=== PATIENT | male | born 1955 | race Caucasian/White ===

== ENCOUNTER → 2024-11-15 14:26 | Outpatient (CLI) | payer OTHER, SELFPAY ==
--- NOTE | 2024-11-15 14:32 | DI.NM.S_ITS ---
PROCEDURE: NM EXERCISE TREADMILL NON NUC COMPARISON: None. INDICATIONS: chronic systolic heart failure FINDINGS: The patient exercised for 7 minutes and 54 seconds reaching 87% of maximum predicted heart rate. Appropriate BP response to exercise. Good exercise tolerance (10.1 METs, SOHAIL -12%). Frequent PVC during exercise/recovery. Mild horizontal ST depression in the anterolateral leads at rest that didn't worsen significantly with exercise. No angina during the study. IMPRESSION: Low risk, probably normal treadmill ECG only stress test from inducible ischemia standpoint. Good exercise tolerance (SOHAIL -12%). No angina during the study. Given mild baseline horizontal ST depressions at rest, recommend exercise echo in future when ischemia evaluation is clinically warranted. Dictated by: Tamar Archer MD on 11/15/2024 at 16:41 Approved by: Tamar Archer MD on 11/15/2024 at 16:44
== END ==
PROVIDERS: Referring Provider Internal Medicine; Visit Provider Internal Medicine
DX: I50.22 Chronic systolic (congestive) heart failure (principal)
CPT/HCPCS: 93017